=== PATIENT | male | born 1965 | race Caucasian/White ===

== ENCOUNTER 2017-12-12 08:58 | Emergency (ER) | payer BC ==
[2017-12-12] MEDS: DIPHTH/TET/ACEL PERTUSS (ADULT) 0.5 ML VIAL IM* (10:43)
[2017-12-12] MEDS: CLINDAMYCIN 300 MG INJ IM (11:04)
== END 2017-12-12 11:15 | disposition home or self-care (01) ==
LOC: FTE 08:58
DX: S61.452A Open bite of left hand, initial encounter (principal); W54.0XXA Bitten by dog, initial encounter; Y92.9 Unspecified place or not applicable; Z23 Encounter for immunization
CPT/HCPCS: 90471; 90715; 96372; 99284-25

== ENCOUNTER 2017-12-13 10:43 | Emergency (ER) | payer BC | END 2017-12-13 11:20 | disposition home or self-care (01) | LOC: E/R 10:43 | DX: Z48.01 Encounter for change or removal of surgical wound dressing (principal) | CPT/HCPCS: 99281 ==